=== PATIENT | female | born 1990 | race African-American/Black ===

== ENCOUNTER 2018-08-27 20:20 | Emergency (ER) | payer OTHER ==
[2018-08-27 20:27] VITALS: BP 110/62; PULSE 68; TEMP 98.1; BMI 25.8
[2018-08-27] MEDS ORDERED: metroNIDAZOLE 250 MG TABLET PO ONE (21:31)
--- NOTE | 2018-08-27 21:32 | PDOC ---
History of Present Illness - General History Source: Patient Exam Limitations: No Limitations - History of Present Illness Initial Comments: 08/27/18 21:34 The patient is a 27 year old female, with no significant past medical history, who presents to the ED complaining of foul smelling white vaginal discharge. She reports that she does have a history of bacterial vaginitis in the past and she believes that this is another episode that is occuring. She notes that she has tried changing her pads and tampons with minimal to no relieve of this re- occuring. She notes that her diet has been poor. The patient denies chest pain, shortness of breath, headache and dizziness. Denies fever, chills, nausea, vomiting, diarrhea or constipation. Allergies: None Past surgical history: None reported Social History: No alcohol, tobacco or drug use reported <Tam Smalls - Last Filed: 08/27/18 21:34> <Araceli Holland - Last Filed: 08/27/18 23:40> - General Chief Complaint: Vaginal Sxs Stated Complaint: VAGINAL SX Time Seen by Provider: 08/27/18 21:13 Past History <Tam Smalls - Last Filed: 08/27/18 21:34> - Past Medical History COPD: No - Reproductive History Is Patient Now?: No - Suicide/Smoking/Psychosocial Hx Smoking History: Never smoked Have you smoked in the past 12 months: No Information on smoking cessation initiated: No Hx Alcohol Use: No <Araceli Holland - Last Filed: 08/27/18 23:40> - Past Medical History Allergies/Adverse Reactions: Allergies Allergy/AdvReac Type Severity Reaction Status Date / Time No Known Allergies Allergy Verified 08/27/18 20:22 Home Medications: Ambulatory Orders Fluconazole [Diflucan] 150 mg PO ONCE #1 tablet 08/27/18 Metronidazole 500 mg PO BID #13 tablet 08/27/18 Review of Systems - Review of Systems Able to Perform ROS?: Yes Comments:: 08/27/18 21:34 GENERAL/CONSTITUTIONAL: No fever or chills. No weakness. HEAD, EYES, EARS, NOSE AND THROAT: No change in vision. No ear pain or discharge. No sore throat. GASTROINTESTINAL: No nausea, vomiting, diarrhea or constipation. GENITOURINARY: (+) Foul Smelling vaginal discharge. No dysuria, frequency, or change in urination. CARDIOVASCULAR: No chest pain or shortness of breath. RESPIRATORY: No cough, wheezing, or hemoptysis. MUSCULOSKELETAL: No joint or muscle swelling or pain. No neck or back pain. SKIN: No rash NEUROLOGIC: No headache, vertigo, loss of consciousness, or change in strength/ sensation. ENDOCRINE: No increased thirst. No abnormal weight change. HEMATOLOGIC/LYMPHATIC: No anemia, easy bleeding, or history of blood clots. ALLERGIC/IMMUNOLOGIC: No hives or skin allergy. <Tam Smalls - Last Filed: 08/27/18 21:34> *Physical Exam - Vital Signs Last Vital Signs Temp Pulse Resp BP Pulse Ox 98.1 F 68 18 110/62 100 08/27/18 20:20 08/27/18 20:20 08/27/18 20:20 08/27/18 20:20 08/27/18 20:20 - Physical Exam Comments: 08/27/18 21:34 Constitutional: Awake, alert, oriented. No acute distress. Head: Normocephalic. Atraumatic Eyes: PERRL. EOMI. Conjunctivae are not pale. ENT: Mucous membranes are moist and intact. Posterior pharynx without exudates or erythema. Uvula midline. Abdominal: Soft and non-distended. There is no tenderness. No rebound, guarding or rigidity. No organomegaly. No palpable masses. Good bowel sounds. Back: No CVA tenderness. Musculoskeletal: No edema. No cyanosis. No clubbing. Full range of motion in all extremities. Nocalf tenderness. Radial/pedal pulses are intact and 2+ bilaterally Skin: Skin is warm and dry. No petechiae. No purpura. Neurological: Alert and oriented to person, place, and time. Cranial nerves II -XII are grossly intact. Normal speech. Strength is grossly symmetric. No sensory deficits. Psychiatric: Good eye contact. Normal interaction, affect and behavior. <Tam Smalls - Last Filed: 08/27/18 21:34> - Vital Signs Last Vital Signs Temp Pulse Resp BP Pulse Ox 98.1 F 68 18 110/62 100 08/27/18 20:20 08/27/18 20:20 08/27/18 20:20 08/27/18 20:20 08/27/18 20:20 <Araceli Holland - Last Filed: 08/27/18 23:40> Moderate Sedation - Procedure Monitoring Vital Signs: Procedure Monitoring Vital Signs Temperature 98.1 F 08/27/18 20:20 Pulse Rate 68 08/27/18 20:20 Respiratory Rate 18 08/27/18 20:20 Blood Pressure 110/62 08/27/18 20:20 O2 Sat by Pulse Oximetry (%) 100 08/27/18 20:20 <Tam Smalls - Last Filed: 08/27/18 21:34> - Procedure Monitoring Vital Signs: Procedure Monitoring Vital Signs Temperature 98.1 F 08/27/18 20:20 Pulse Rate 68 08/27/18 20:20 Respiratory Rate 18 08/27/18 20:20 Blood Pressure 110/62 08/27/18 20:20 O2 Sat by Pulse Oximetry (%) 100 08/27/18 20:20 <Araceli Holland - Last Filed: 08/27/18 23:40> Medical Decision Making - Medical Decision Making 08/27/18 23:38 Pt with her usual BV. She is requesting oral flagyl rather than metrogel, as she is sensitive to the gel, and it is uncomfortable for her. Pt understands that the systemic abx carries potential negative side effects - WBC suppression etc. Pt advised to use a probiotic, as well as active yogurt cultures in her diet. Pt will be given a dose of diflucan to use after the abx, as she states that she often gets yeast infections after the abx. <Araceli Holland - Last Filed: 08/27/18 23:40> *DC/Admit/Observation/Transfer - Attestations Scribe Attestion: 08/27/18 21:35 Documentation prepared by Tam Smalls, acting as medical billing assistant for Araceli Holland MD <Tam Smalls - Last Filed: 08/27/18 21:34> - Discharge Dispostion Decision to Admit order: No <Araceli Holland - Last Filed: 08/27/18 23:40> Diagnosis at time of Disposition: Bacterial vaginosis - Discharge Dispostion Disposition: HOME Condition at time of disposition: Stable - Prescriptions Prescriptions: Fluconazole [Diflucan] 150 mg PO ONCE #1 tablet Metronidazole 500 mg PO BID #13 tablet - Post Discharge Activity Forms/Work/School Notes: Back to School
[2018-08-27] MEDS ORDERED: metroNIDAZOLE 250 MG TABLET ONE (21:33)
== END 2018-08-27 21:37 | disposition home or self-care (01) ==
LOC: FER 20:20
DX: N76.0 Acute vaginitis (principal); B96.89 Other specified bacterial agents as the cause of diseases classified elsewhere
CPT/HCPCS: 99281-25

== ENCOUNTER 2021-11-18 12:26 | Emergency (ER) | payer OTHER ==
[2021-11-18 12:33] VITALS: BP 121/86; PULSE 85; TEMP 98.5; BMI 27.6
[2021-11-18] MEDS ORDERED: FLUORESCEIN NA 1 EA STRIP OS ONE (13:36)
[2021-11-18] MEDS ORDERED: FLUORESCEIN NA 1 EA STRIP ONE (13:39)
== END 2021-11-18 14:18 | disposition home or self-care (01) ==
LOC: JERFT 12:26
DX: H00.025 Hordeolum internum left lower eyelid (principal)
CPT/HCPCS: 99283-25

== ENCOUNTER 2022-05-26 13:53 | Emergency (ER) | payer OTHER ==
[2022-05-26 14:18] VITALS: BP 115/79; PULSE 89; RESP 18; TEMP 99.8; BMI 29.9
== END 2022-05-26 15:24 | disposition home or self-care (01) ==
LOC: JER 13:53 → JERFT 13:53
DX: J09.X2 Influenza due to identified novel influenza A virus with other respiratory manifestations (principal)
CPT/HCPCS: 0241U-QW; 71046-TC-FY; 82375; 99284-25

== ENCOUNTER 2022-10-23 17:16 | Emergency (ER) | payer OTHER ==
[2022-10-23 17:42] VITALS: BP 129/76; PULSE 77; RESP 18; TEMP 98.1; BMI 29.7
[2022-10-23] MEDS ORDERED: ACETAMINOPHEN 500 MG TABLET (FP) PO ONE (20:05)
[2022-10-23] MEDS ORDERED: ACETAMINOPHEN 500 MG TABLET (FP) ONE (20:06)
== END 2022-10-23 20:25 | disposition home or self-care (01) ==
LOC: JERFT 17:16
DX: S90.111A Contusion of right great toe without damage to nail, initial encounter (principal); W22.01XA Walked into wall, initial encounter
CPT/HCPCS: 73630-TC-RT-FY; 99283-25